=== PATIENT | female | born 1965 ===

== ENCOUNTER 2020-12-09 04:29 | Day surgery (SDC) | payer OTHER ==
[2020-12-09 10:51] VITALS: BMI 20.9
[2020-12-09 11:13] VITALS: TEMP 98.4
[2020-12-09 12:13] VITALS: BP 106/66; PULSE 52
== END 2020-12-09 12:13 | disposition home or self-care (01) ==
LOC: JASU-ENDO 04:29
PROVIDERS: ATTEND Internal Medicine Gastroenterology
PROC: 0DB78ZX Excision of Stomach, Pylorus, Via Natural or Artificial Opening Endoscopic, Diagnostic (ICD-10-PCS; principal; 2020-12-09 10:45)
DX: K29.70 Gastritis, unspecified, without bleeding (principal); B96.81 Helicobacter pylori [H. pylori] as the cause of diseases classified elsewhere
CPT/HCPCS: 88305-TC; 88342-TC

== ENCOUNTER 2021-12-01 14:25 | Emergency (ER) | payer OTHER ==
[2021-12-01 14:30] VITALS: BP 94/66; PULSE 78; TEMP 98; BMI 20.2
== END 2021-12-01 15:30 | disposition home or self-care (01) ==
LOC: FER 14:25
DX: T23.202A Burn of second degree of left hand, unspecified site, initial encounter (principal); T23.201A Burn of second degree of right hand, unspecified site, initial encounter; Y27.8XXA Contact with other hot objects, undetermined intent, initial encounter
CPT/HCPCS: 99281-25

== ENCOUNTER 2022-05-10 11:30 | Emergency (ER) | payer OTHER ==
[2022-05-10 11:55] VITALS: BP 107/43; PULSE 81; RESP 20; TEMP 99.2; BMI 21.2
== END 2022-05-10 12:17 | disposition home or self-care (01) ==
LOC: FER 11:30
DX: S50.01XA Contusion of right elbow, initial encounter (principal); S83.92XA Sprain of unspecified site of left knee, initial encounter; M25.511 Pain in right shoulder; W01.0XXA Fall on same level from slipping, tripping and stumbling without subsequent striking against object, initial encounter
CPT/HCPCS: 99282-25